=== PATIENT | female | born 1950 | race Caucasian/White ===

== ENCOUNTER → 2017-11-25 | Outpatient (CLI) | payer MEDICARE, OTHER | LOC: MC.RAD 11:40 | DX: Z12.31 Encounter for screening mammogram for malignant neoplasm of breast (principal) ==

== ENCOUNTER → 2018-11-30 | Outpatient (CLI) | payer MEDICARE, OTHER | LOC: MC.RAD 10:30 | DX: Z12.31 Encounter for screening mammogram for malignant neoplasm of breast (principal) ==

== ENCOUNTER → 2019-03-03 | Outpatient (CLI) | payer MEDICARE, OTHER | LOC: COL.RAD 12:41 | DX: Z01.818 Encounter for other preprocedural examination (principal); I65.21 Occlusion and stenosis of right carotid artery; R29.90 Unspecified symptoms and signs involving the nervous system; R93.89 Abnormal findings on diagnostic imaging of other specified body structures | CPT/HCPCS: Q9967 ==

== ENCOUNTER 2019-11-05 15:14 | Outpatient (CLI) | payer MEDICARE, OTHER | END 2019-11-10 | LOC: COL.RAD | DX: Z01.812 Encounter for preprocedural laboratory examination (principal); I63.9 Cerebral infarction, unspecified | CPT/HCPCS: A9585 ==

== ENCOUNTER → 2019-12-02 | Outpatient (CLI) | payer MEDICARE, OTHER | LOC: MC.RAD 14:25 | DX: Z12.31 Encounter for screening mammogram for malignant neoplasm of breast (principal) ==

== ENCOUNTER 2020-02-17 11:00 | Outpatient (RCR) | payer MEDICARE, OTHER | END 2020-03-08 14:12 | disposition home or self-care (01) | LOC: WSOT 11:00 | DX: G56.01 Carpal tunnel syndrome, right upper limb (principal); M77.9 Enthesopathy, unspecified; M19.042 Primary osteoarthritis, left hand ==

== ENCOUNTER → 2020-03-27 | Outpatient (CLI) | payer MEDICARE, OTHER | LOC: COL.RAD 10:44 | DX: M48.02 Spinal stenosis, cervical region (principal) ==

== ENCOUNTER 2020-05-03 15:15 | Outpatient (RCR) | payer MEDICARE, OTHER | END 2020-05-03 16:34 | disposition home or self-care (01) | LOC: WSC 15:15 | DX: M48.02 Spinal stenosis, cervical region (principal); M47.812 Spondylosis without myelopathy or radiculopathy, cervical region ==

== ENCOUNTER 2020-08-07 13:15 | Outpatient (RCR) | payer MEDICARE, OTHER | END 2020-08-08 | disposition home or self-care (01) | LOC: WSPT | DX: M79.604 Pain in right leg (principal) ==

== ENCOUNTER → 2021-08-22 | Outpatient (CLI) | payer MEDICARE, OTHER | LOC: MC.RAD 10:45 | DX: Z12.31 Encounter for screening mammogram for malignant neoplasm of breast (principal) ==

== ENCOUNTER 2023-03-04 11:15 | Outpatient (RCR) | payer MEDICARE, OTHER | END 2023-03-16 | disposition home or self-care (01) | LOC: WSPT | DX: M79.605 Pain in left leg (principal); M54.9 Dorsalgia, unspecified ==

== ENCOUNTER 2023-03-21 11:05 | Outpatient (RCR) | payer MEDICARE, OTHER | END 2023-03-21 13:00 | disposition home or self-care (01) | LOC: WSPT 11:05 | DX: M54.9 Dorsalgia, unspecified (principal); M79.604 Pain in right leg ==